=== PATIENT | female | born 1965 | race Caucasian/White ===

== ENCOUNTER → 2020-05-13 13:19 | Outpatient (CLI) | payer BC, SELFPAY ==
--- NOTE | ~2020-05-13 | US_ITS ---
EXAMINATION: US pelvic complete w TV DATE: 05/13/2020 13:44 INDICATION: Postmenopausal bleeding TECHNIQUE: Multiple transabdominal and endovaginal sonographic images of the pelvis were obtained. COMPARISON: None. FINDINGS: The uterus measures 9.0 x 4.2 x 5.3 cm. 2.5 x 1.9 x 2.2 cm heterogeneous mass in the anterior uterine fundus consistent with a uterine fibroid. The endometrial complex measures 8 mm in thickness. There is a second 1 cm solid nodular lesion which appears along the posterior margin of the endometrial com plex, unclear whether within the myometrium within the endometrial complex. 3 mm nabothian cyst at th e cervix. The right ovary is not visualized. The left ovary measures 2.5 x 1.3 x 1.4 cm. There is nor mal vascular flow in the left ovary. There is small amount of free fluid in the cul-de-sac. IMPRESSION: 1. 2.5 cm fibroid in the anterior uterine fundus with a second smaller 1 cm nodule more posteriorly, unclear whether within the myometrium consistent with a second fibroid or within the endometrial comp perry for which there would be a wider differential including submucosal fibroid, polyp, focal adenomyo matosis or endometrial carcinoma. Would recommend further evaluation with either hysteroscopy or MRI. Reviewed, dictated and finalized at location A. IMPRESSION: 1. 2.5 cm fibroid in the anterior uterine fundus with a second smaller 1 cm nod ule more posteriorly, unclear whether within the myometrium consistent with a s econd fibroid or within the endometrial complex for which there would be a wide r differential including submucosal fibroid, polyp, focal adenomyomatosis or en dometrial carcinoma. Would recommend further evaluation with either hysteroscop y or MRI.
== END ==
PROVIDERS: Visit Provider Obstetrics & Gynecology
DX: N95.0 Postmenopausal bleeding (principal); D25.9 Leiomyoma of uterus, unspecified
CPT/HCPCS: 76830; 76856

== ENCOUNTER 2021-05-17 07:54 | Outpatient (CLI) | payer BC, SELFPAY ==
--- NOTE | ~2021-05-17 | DEXA_ITS ---
Bone Density Report Name: Suly Shultz Age: 55 Sex: Female Ethnicity: White Date of : 1965 Indication: postmenopausal Referring Provider: Christina Tolliver Study: Bone densitometry was performed. Exam Date: May 17, 2021 Accession number: [id number] Bone Density: Region BMD T-score Z-score Classification AP Spine (L1-L4) 1.082 0.3 1.6 Normal Femoral Neck (Left) 0.878 0.3 1.4 Normal Total Hip (Left) 1.026 0.7 1.5 Normal Total Hip Bilateral Avg 0.997 0.4 1.3 Normal Femoral Neck (Right) 0.914 0.6 1.8 Normal Total Hip (Right) 0.967 0.2 1.0 Normal World Health Organization criteria for BMD impression classify patients as: Normal (T-score at or above -1.0), Osteopenia (T-score between -1.0 and -2.5), or Osteoporosis (T-score at or below -2.5). 10-year Fracture Risk: FRAX not reported because: Premenopausal woman All T-scores for Spine Total, Hip Total, Femoral Neck at or above -1.0 Previous Exams: Region Exam Age BMD T-score BMD Change BMD Change Date g/cm2 vs Baseline vs Previous AP Spine(L1-L4) 05/17/2021 55 1.082 0.3 -0.004(-0.4%) -0.004(-0.4%) 10/16/2017 52 1.086 0.4 Total Hip(Left) 05/17/2021 55 1.026 0.7 -0.004(-0.4%) -0.004(-0.4%) 10/16/2017 52 1.030 0.7 Total Hip(Right) 05/17/2021 55 0.967 0.2 -0.027(-2.7%) -0.027(-2.7%) 10/16/2017 52 0.994 0.4 *Denotes significance at 95% confidence level, LSC for AP Spine = 0.022 g/cm2, LSC for Total Hip = 0.027 g/cm2 Clinical Information Provided by Patient: Has used the following medications: HRT (i.e. estrogen/hormone therapy) Patient maximum height was 67.5 Onset of menses at age 11 Premenopausal Number of children 2 Impression: The patient's bone mass is within expected range for age, gender and ethnicity. No significant bone loss was observed. Discussion: BONE DENSITY IS WITHIN EXPECTED LIMITS FOR AGE, SEX AND RACE. Bone density is within expected limits for age, sex and race at all sites measured. The patient should follow a healthful lifestyle (good nutrition with adequate calcium and vitamin D, and appropriate weight-bearing exercise). Follow-Up: Consider repeating this study in 5 years or sooner if there is some new clinical indication. Reported by: [facility] on 05/17/2021 8:24:00 AM. Reviewed, dictated and finalized at location [facility]
--- NOTE | ~2021-05-17 | MM_ITS ---
EXAMINATION: MM scrn peter implant BI w vielka HISTORY: Screening mammogram TECHNIQUE: Craniocaudal and mediolateral oblique 3-D tomosynthesis images with implant displacement a nd synthetic 2-D images were generated. Craniocaudal and mediolateral oblique views of the breasts wi thout implant displacement were obtained using full field digital mammography. CAD analysis was submi tted and interpreted. COMPARISON: 12/17/2009 BREAST PARENCHYMAL COMPOSITION: The breasts are heterogeneously dense, which may obscure small masses . FINDINGS: RIGHT BREAST: There is no evidence of suspicious mass, calcification, or architectural distortion to suggest malignancy. There has been no significant interval change. LEFT BREAST: There is possible architectural distortion best appreciated and a slightly outer breast on the implant displaced craniocaudal view. IMPRESSION: 1. Possible left breast architectural distortion. 2. Additional mammographic views and possible breast ultrasound are recommended. BI-RADS Category 0: Incomplete: Needs additional imaging evaluation. Reviewed, dictated and finalized at location D. IMPRESSION: 1. Possible left breast architectural distortion. 2. Additional mammographic views and possible breast ultrasound are recommended . BI-RADS Category 0: Incomplete: Needs additional imaging evaluation.
== END 2021-05-17 07:55 | disposition home or self-care (01) ==
PROVIDERS: PCP Internal Medicine; Visit Provider Clinical Nurse Specialist
DX: Z12.31 Encounter for screening mammogram for malignant neoplasm of breast (principal); Z78.0 Asymptomatic menopausal state
CPT/HCPCS: 77063; 77067; 77080

== ENCOUNTER 2022-03-26 14:26 | Outpatient (CLI) | payer BC, SELFPAY ==
[2022-03-26 18:43] LABS: Basophils Absolute Auto 0.1 K/mm3 (0.0-0.1); Basophils Percent Auto 1.2 % (0.2-1.2); Eosinophils Absolute Auto 0.1 K/mm3 (0-0.3); Eosinophils Percent Auto 1.7 % (0-4.4); Hematocrit 36.8 % (37.0-47.0); Immature Granulocyte Absolute 0.02 K/mm3 (0.00-0.031); Immature Granulocyte Percent A 0.3 % (0-0.5); Lymphocytes Absolute Auto 1.41 K/mm3 (0.9-3.2); Lymphocytes Percent Auto 23.8 % (18.3-44.2); Mean Corpuscular HGB Conc 32.6 g/dl (32-36); Mean Corpuscular Hemoglobin 30.9 pg (26-34); Mean Corpuscular Volume 94.8 fl (80-100); Mean Platelet Volume 10.7 fl (7.4-10.4); Monocytes Absolute Auto 0.5 K/mm3 (0.1-0.6); Monocytes Percent Auto 8.6 % (2.6-8.5); Neutrophils Absolute Auto 3.8 K/mm3 (1.3-6.7); Neutrophils Percent Auto 64.4 % (45.5-73.1); Platelet Count Result 222 k/mm3 (150-375); Red Blood Count 3.88 M/mm3 (4.2-5.4); Red Cell Distribution Width 12.6 % (11.5-14.5); White Blood Count 5.9 K/mm3 (4.5-10.0)
[2022-03-26 19:04] LABS: Alanine Aminotransferase 23 U/L (6-35); Alkaline Phosphatase 74 U/L (38-126); Anion Gap 9 mmol/L (8-16); Aspartate Amino Transferase 35 U/L (14-36); Bilirubin,Total 0.6 mg/dL (0.2-1.3); Blood Urea Nitrogen 17 mg/dL (7-17); Calcium 9.3 mg/dL (8.4-10.2); Carbon Dioxide 29 mmol/L (22-30); Chloride 101 mmol/L (98-107); Cholesterol 199 mg/dL (0-200); Estimated Glomerular Filt Rate > 60; Glucose 98 mg/dL (65-110); HDL Direct 92 mg/dL; Potassium 4.2 mmol/L (3.4-5.0); Sodium 139 mmol/L (137-145); Triglycerides 69 mg/dL (<150)
[2022-03-26 19:15] LABS: LDL Cholesterol Direct 72 mg/dL
== END 2022-03-26 14:27 | disposition home or self-care (01) ==
LOC: ANHGOSHLAB 14:27
PROVIDERS: PCP Internal Medicine; Visit Provider Nurse Practitioner
DX: E03.9 Hypothyroidism, unspecified (principal); E55.9 Vitamin D deficiency, unspecified; D64.9 Anemia, unspecified; Z13.220 Encounter for screening for lipoid disorders; Z13.29 Encounter for screening for other suspected endocrine disorder
CPT/HCPCS: 36415; 80053; 80061; 82306; 82728; 84443; 85025

== ENCOUNTER 2022-10-03 14:46 | Outpatient (CLI) | payer OTHER, SELFPAY ==
--- NOTE | ~2022-10-03 | XR_ITS ---
XR hip LT min 2V 10/03/2022 14:59 Indication: Chronic hip pain Procedure: 2 views left hip Comparison: No prior studies for comparison. Findings: There is anatomic alignment. Normal mineralization. No significant joint space narrowing. N o fracture, subluxation or dislocation. No evidence for avascular necrosis. Surrounding osseous struc tures are unremarkable. No focal soft tissue abnormality. Impression: 1: No significant bone or joint abnormality. Reviewed, dictated and finalized at location B. RTEBRATE PALEONTOLOGIST Impression: 1: No significant bone or joint abnormality.
== END 2022-10-03 14:47 | disposition home or self-care (01) ==
LOC: ANHIMG 14:49
PROVIDERS: PCP Internal Medicine; Visit Provider Nurse Practitioner
DX: M25.552 Pain in left hip (principal)
CPT/HCPCS: 73502

== ENCOUNTER 2022-10-10 12:37 | Outpatient (CLI) | payer OTHER, SELFPAY ==
--- NOTE | ~2022-10-10 | XR_ITS ---
XR lumbar spine 2-3V 10/10/2022 12:53 Indication: Radiculopathy Procedure: 3 views lumbar spine Comparison: No prior studies for comparison. Findings: No fracture, subluxation or dislocation. No vertebral body heights are maintained. No evide nce for spondylolisthesis. Pedicles are intact. There are cholecystectomy clips. Sacral foramen are s ymmetric. Impression: 1: No significant abnormality of the lumbar spine. Reviewed, dictated and finalized at location B. REFRIGERATING ENGINEER Impression: 1: No significant abnormality of the lumbar spine.
== END 2022-10-10 12:38 | disposition home or self-care (01) ==
LOC: ANHIMG 12:38
PROVIDERS: PCP Internal Medicine; Visit Provider Nurse Practitioner
DX: M54.16 Radiculopathy, lumbar region (principal)
CPT/HCPCS: 72100

== ENCOUNTER 2024-03-30 07:54 | Outpatient (CLI) | payer OTHER, SELFPAY ==
--- NOTE | ~2024-03-30 | MM_ITS ---
EXAMINATION: MM scrn peter implant BI w vielka HISTORY: Screening mammogram TECHNIQUE: Craniocaudal and mediolateral oblique 3-D tomosynthesis images with implant displacement a nd synthetic 2-D images were generated. Craniocaudal and mediolateral oblique views of the breasts wi thout implant displacement were obtained using full field digital mammography. CAD analysis was submi tted and interpreted. COMPARISON: Comparison to multiple prior studies sequentially, with oldest reviewed study dated 12/28. BREAST PARENCHYMAL COMPOSITION: Not dense: There are scattered areas of fibroglandular density. FINDINGS: There is no evidence of suspicious mass, calcification, or architectural distortion to sugg est malignancy in either breast. There has been no suspicious interval change. IMPRESSION: 1. No mammographic evidence of malignancy. 2. Recommend routine screening mammography in one year. BI-RADS Category 1: Negative Reviewed, dictated and finalized at location B.
== END 2024-03-30 07:55 | disposition home or self-care (01) ==
LOC: ANHIMG 07:55
PROVIDERS: PCP Internal Medicine; Visit Provider Nurse Practitioner
DX: Z12.31 Encounter for screening mammogram for malignant neoplasm of breast (principal)
CPT/HCPCS: 77063; 77067

== ENCOUNTER 2025-03-08 11:24 | Outpatient (CLI) | payer OTHER, SELFPAY ==
--- NOTE | ~2025-03-08 | XR_ITS ---
CHEST RADIOGRAPH, PA AND LATERAL CLINICAL HISTORY: Acute upper respiratory infection, unspecified . COMPARISON: None available TECHNIQUE: PA and lateral views of the chest. FINDINGS The cardiomediastinal silhouette is unremarkable. The lungs are clear. IMPRESSION: No focal infiltrate or effusion. Reviewed, dictated and finalized at location A.
--- OUTSIDE RECORDS SUMMARY | 2025-03-08 11:54 | XMS_ITS | Patient Health Record ---
Author Organization [facility] Address [address] [facility] [address] [address] Care Team Providers Care Chief Radiation Therapist Name Role Phone Bobby Mann Primary Care Provider Unavailab JOSSY Hendrix Unavailable [phone] Allergies No Known Allergies Reason For Referral No Information Medications Medication SIG (Take, Route, Frequency, Duration) Notes Start Date End Date Status Pramipexole Dihydrochloride Active Levothyroxine Sodium Active Problems Problem Type SNOMED Code ICD Code Onset Dates Problem Status W/U Status Risk Notes Problem Varicose veins of right lower extremity with pain (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
--- OUTSIDE RECORDS SUMMARY | 2025-03-08 11:54 | XMS_ITS | Clinical Summary ---
Author Organization [facility] Address [address] [facility] [place] [address] Care Team Providers Care Laboratory Apparatus Glass Blower Name Role Phone Maximiliano Jordan MD Primary Care Provider Kiarra vailable Source Comments [facility],non-owned Affiliates and Associated Physician Practices is amultiple site organization consisting of ambulatory clinics and hospital sitesin [place], [place], [place] and [place]. This disclosure is being madepursuant to the Care Everywhere program and may not contain all information available regarding this patient. Last updated 18.[facility] Allergies No known active allergies Medications * Be aware that medications may not be up to date on this document. Alwaysverify current medications with the patient. pramipexole (MIRAPAX) 0.5 MG tablet Take 0.5 mg by mouth at bedtime. Active sertraline (ZOLOFT) 50 MG tablet Take 50 mg by mouth once daily. Active levothyroxine (SYNTHROID) 88 MCG tablet Take 88 mcg by mouth daily before breakfast. Active hydrocodone-acet aminophen (NORCO) 5-325 MG tablet Take 1-2 Tabs by mouth every 4 hours as needed for Pain. 30 Tab 0 01/10/2012 Active Active Problems No known active problems Social History Tobacco Use Types Packs/Day Years Used Date Smoking Tobacco: Never Tobacco Cessation:Counseling Given: No Alcohol Use Standard Drinks/Week Comments No 0 (1 standard drink = 0.6 oz pur e alcohol) Comments No Sex and Gender Information Value Date Recorded Sex Assigned at Not on file Legal Sex Female 6:28 AM ZONING ADMINISTRATOR Gender Identity Not on file Sexual Orientation Not on file Last Filed Vital Signs Vital Sign Reading Time Taken Comments Blood Pressure 100/70 09/23/2013 10:43 AM ZONING ADMINISTRATOR Pulse 63 01/10/2012 11:25 AM CDT Temperature 36.6 C (97.9 F) 01/10/2012 9:50 AM CDT Respiratory Rate 16 01/10/2012 11:25 AM CDT Oxygen Saturation 100% 01/10/2012 10:40 AM CDT Inhaled Oxygen Concentration - - Weight 59 kg (130 lb) 09/23/2013 10:43 AM ZONING ADMINISTRATOR Height 172.7 cm (5' 8) 09/23/2013 10:43 AM ZONING ADMINISTRATOR Body Mass Index 19.77 09/23/2013 10:43 AM ZONING ADMINISTRATOR Plan of Treatment Health Maintenance Due Date Last Done Comments COLOGUARD (AGES 45-75) - COL ON CA SCREENING 1965 COLON MONITORING 1965 COLONOSCOPY - COLON CA SCREENING 1965 CT COLONOGRAPHY - COLON CA SCREENING 1965 Colorectal Cancer Screening 1965 FIT - COLON CA SCREENING 1965 FLEX SIG - COLON CA SCREENING 1965 LIPID TESTING 1965 MAMMOGRAM 1965 HIV SCREENING 1978 HEPATITIS C SCREENING 07/14/1981 DTAP/TDAP/TD VACCINES (1 - Tdap) 1982 PNEUMOCOCCAL VACCINE 50+ (1 of 1 - PCV) 2013 ZOSTER VACCINE (1 of 2) 2013 COVID-19 VACCINE (1 - 2023-2 5 season) 2024 DEPRESSION SCREENING 08/12/2024 INFLUENZA VACCINE (#1) 2025 Respiratory Syncytial Virus (RSV) Vaccine Pt: or over 60 yrs (1 - 1-dose 75+ series) 2038 HEPATITIS B VACCINE Aged Out No longe r eligible based on patient's age to complete this topic HIB VACCINE Aged Out No longer eligi ble based on patient's age to complete this topic HPV VACCINE Aged Out No longer eligi ble based on patient's age to complete this topic MENINGOCOCCAL (Group B) VACC INE SHARED DECISION-MAKING Aged Out No longer eligibl e based on patient's age to complete this topic MENINGOCOCCAL GROUPS A/C/Y/W VACCINE Aged Out No longer eligible b ased on patient's age to complete this topic Care Teams Laboratory Apparatus Glass Blower Relationship Specialty Start Date End Date Maximiliano Jordan MD PCP - General 03/29/10
== END 2025-03-08 11:25 | disposition home or self-care (01) ==
LOC: ANHIMG 11:43
PROVIDERS: PCP Nurse Practitioner; Visit Provider Nurse Practitioner
DX: J06.9 Acute upper respiratory infection, unspecified (principal)
CPT/HCPCS: 71046

== ENCOUNTER 2025-07-20 10:58 | Outpatient (CLI) | payer SELFPAY ==
--- NOTE | ~2025-07-20 | XR_ITS ---
EXAM/PROCEDURE: [id number] HISTORY: PT STATES SHE FELL ON A CURVE X 1 WK AND IS SOB COMPARISON: None available. TECHNIQUE: Chest x-ray and rib series FINDINGS: The lungs are clear with no consolidation effusion hemothorax or pneumothorax seen. No subphrenic free air. Heart size normal. The bones appear intact with no displaced rib fractures seen. IMPRESSION: No acute findings. Reviewed, dictated and finalized at location A. TRICAL POWER STATION TECHNICIAN IMPRESSION: No acute findings.
== END 2025-07-20 10:59 | disposition home or self-care (01) ==
PROVIDERS: PCP Internal Medicine; Visit Provider Nurse Practitioner
DX: R06.02 Shortness of breath (principal)
CPT/HCPCS: 71101